=== PATIENT | female | born 1960 | race African-American/Black ===

== ENCOUNTER 2019-12-26 08:25 | Emergency (ER) | payer BC ==
[~2019-12-26] VITALS: Ht 165.1 cm; Wt 97.5 kg
[2019-12-26] MEDS ORDERED: TRAMADOL 50 MG50 MG PO (09:15)
[2019-12-26 10:36] VITALS: BP 152/82
== END 2019-12-26 10:50 | disposition home or self-care (01) ==
LOC: ER 08:25
DX: M54.41 Lumbago with sciatica, right side (principal); Z91.048 Other nonmedicinal substance allergy status

== ENCOUNTER 2020-07-22 09:46 | Emergency (ER) | payer BC ==
[~2020-07-22] VITALS: Ht 165.1 cm; Wt 104.3 kg
[~2020-07-22 09:46] MED LIST: TRAMADOL 50 MG50 MG PO
[2020-07-22 10:29] LABS: ABSOLUTE NEUTROPHILS 6.9 thou/uL (1.4-8.2); BASOPHILS 0.5 % (0.0-2.0); EOSINOPHILS 0.3 % (0.0-3.0); HEMATOCRIT 37.1 % (37.0-47.0); HEMOGLOBIN 12.6 gm/dL (12.0-15.0); LYMPHOCYTES 15.3 % (24.0-44.0); MCH 31.7 pg (26.0-34.0); MCHC 33.8 g/dL (28.0-37.0); MCV 93.9 fL (80.0-100.0); MONOCYTES 7.7 % (1.0-8.0); PLATELET COUNT 210 thou/uL (150-400); POLYS 76.2 % (36.0-66.0); RBC 3.95 mil/uL (4.20-5.00); RDW 14.3 % (10.5-14.5)
[2020-07-22 10:33] LABS: ANION GAP 12 mmol/L (7-16); BUN 13 mg/dL (7-18); CALCIUM 8.6 mg/dL (8.5-10.1); CHLORIDE 104 mmol/L (98-107); CO2 24 mmol/L (21-32); CREATININE 0.9 mg/dL (0.6-1.0); GLUCOSE 118 mg/dL (74-106); POTASSIUM 3.5 mmol/L (3.5-5.1); SODIUM 140 mmol/L (136-145)
[2020-07-22 10:42] LABS: TROPONIN-I <0.06 ng/mL (<0.06)
[2020-07-22 11:00] LABS: URINE BILIRUBIN NEGATIVE (Negative); URINE BLOOD NEGATIVE (Negative); URINE CLARITY CLEAR; URINE COLOR YELLOW; URINE GLUCOSE-RANDOM* NEGATIVE (Negative); URINE KETONES NEGATIVE (Negative); URINE LEUKOCYTES-REFLEX NEGATIVE (Negative); URINE NITRITE-REFLEX NEGATIVE (Negative); URINE PROTEIN (DIPSTICK) NEGATIVE (Negative); URINE SPECIFIC GRAVITY 1.015 (1.005-1.035); URINE UROBILINOGEN 0.2 E.U./dl (0.2-1.0)
[2020-07-22] MEDS ORDERED: NAPROSYN500 MG PO (15:09)
[2020-07-22] MEDS ORDERED: NORCO 5-325 TA1 EAC2 PO (15:09)
[2020-07-22] MEDS ORDERED: PROTONIX40 M2 PO (15:09)
[2020-07-22] MEDS ORDERED: SENNA-DOCUSATE1 EAC1 PO (15:09)
[2020-07-22 15:27] VITALS: BP 147/75
== END 2020-07-22 16:05 | disposition home or self-care (01) ==
LOC: ER 09:46
PROVIDERS: Emergency Medicine
DX: S50.812A Abrasion of left forearm, initial encounter (principal); R07.89 Other chest pain; R10.9 Unspecified abdominal pain; M25.571 Pain in right ankle and joints of right foot; M43.6 Torticollis; M25.562 Pain in left knee; I10 Essential (primary) hypertension; Z79.899 Other long term (current) drug therapy; Z91.048 Other nonmedicinal substance allergy status; V89.2XXA Person injured in unspecified motor-vehicle accident, traffic, initial encounter; Y93.I9 Activity, other involving external motion; Y92.488 Other paved roadways as the place of occurrence of the external cause; Y99.8 Other external cause status